=== PATIENT | female | born 1995 | race Caucasian/White ===

== ENCOUNTER 2017-04-21 21:55 | Emergency (ER) | payer BC ==
[~2017-04-21] VITALS: Ht 160 cm; Wt 57.7 kg
[2017-04-21 22:46] VITALS: TEMP 36.7; Ht 160 cm; Wt 57.7 kg
[2017-04-21] MEDS ORDERED: ONDANSETRON INJ 2 MG/ML 2 ML VIAL IV STA (23:00)
[2017-04-21] MEDS ORDERED: DICYCLOMINE HCL 10 MG/ML 2 ML AMP IM ONE (23:00)
[2017-04-21] MEDS ORDERED: OPTIRAY 320 IV PRN (23:15)
[2017-04-21 23:26] VITALS: O2SAT 98
[2017-04-21 23:34] LABS: BASO % 0.1 %; BASO ABS # 0.01 K/uL (0-0.2); EOS % 0.5 %; EOS ABS # 0.08 K/uL (0-0.5); HEMATOCRIT 39.2 % (37-47); HEMOGLOBIN 13.3 g/dL (12.0-16.0); IG# 0.04 K/uL (0.00-0.02); LYMPH % 9.1 %; LYMPH ABS # 1.41 K/uL (1.2-3.4); MEAN CELL VOLUME 83.8 fL (80-100); MEAN CORPUSCULAR HEMOGLOBIN 28.4 pg (25-34); MEAN CORPUSCULAR HGB CONC 33.9 g/dl (32-36); MEAN PLATELET VOLUME 9.5 fL (7.4-10.4); MONO % 9.4 %; MONO ABS # 1.46 K/uL (0.11-0.59); NEUT % 80.6 %; NEUT ABS # 12.52 K/uL (1.4-6.5); PLATELET COUNT 318 K/uL (130-400); RED CELL DISTRIBUTION WIDTH CV 12.3 % (11.5-14.5); RED CELL DISTRIBUTION WIDTH SD 37.3 fL (36.4-46.3); WHITE BLOOD COUNT 15.52 K/uL (4.8-10.8)
[2017-04-21] MEDS ORDERED: BCPILLS PO (23:40)
[2017-04-22 00:23] LABS: ALBUMIN 3.8 gm/dl (3.4-5.0); CALCIUM 8.7 mg/dl (8.5-10.1); CREATININE 0.78 mg/dl (0.60-1.20); POTASSIUM 3.3 mmol/L (3.5-5.1); TOTAL PROTEIN 7.4 gm/dl (6.4-8.2)
[2017-04-22] MEDS ORDERED: SODIUM CHLORIDE 0.9% 1000ML 1,000 ML IV STA (01:01)
[2017-04-22] MEDS ORDERED: CEFTRIAXONE SOD INJ 1 GM ADDVIAL IV STA (02:46)
[2017-04-22] MEDS ORDERED: POTASSIUM CHLORIDE 10 MEQ TABCR PO STA (02:46)
[2017-04-22] MEDS ORDERED: CEFD300C2 PO (03:00)
[2017-04-22] MEDS ORDERED: ONDANSETRON HOME PACK 4MG OD TAB PO ONE (03:00)
[2017-04-22 03:41] VITALS: BP 123/72; PULSE 68; O2SAT 98
--- NOTE | 2017-04-22 05:34 | EMERGENCY ROOM VISIT NOTE ---
History First contact with patient: 22:50 Chief Complaint: ABDOMINAL PAIN Stated Complaint: SEVERE ABDOMINAL PAIN, WORSE ON RT SIDE Nursing Triage Summary: patient c/o RLQ pain beginning earlier today that has worsened throughtout the day along with nausea. History of Present Illness The patient is a 21 year old female who presents to the Emergency Room with complaints of right lower quadrant pain for the past day steadily getting worse described as aching or range at severity 6 out of 10. Nothing makes it better or worse. It Does not radiate. Patient denies chest pain, dyspnea, vomiting, diarrhea, back pain, urinary symptoms, vaginal itching or discharge. Review of Systems See HPI for pertinent positives & negatives. A total of 10 systems reviewed and were otherwise negative. Past Medical/Surgical History None Social History Smoking Status: Never Smoker Smokeless Tobacco Use: No Drug Use: none Occupation Status: [employer] student Current/Historical Medications Scheduled Control Pills ( Control Pills), 1 TAB PO DAILY Cefdinir (Omnicef), 300 MG PO Q12H Physical Exam Vital Signs Date Time Temp Pulse Resp B/P (MAP) Pulse Ox O2 Delivery O2 Flow Rate FiO2 04/22/17 03:41 68 17 123/72 98 04/22/17 01:07 77 20 127/75 98 Room Air 04/21/17 23:26 98 Room Air 04/21/17 23:26 88 20 125/79 98 Room Air 04/21/17 22:46 36.7 115 20 137/98 98 Room Air Physical Exam VITALS: Vitals are noted on the nurse's note and reviewed by myself. Vital signs stable. GENERAL: Pleasant female, in no acute distress, nondiaphoretic, well-developed well-nourished. SKIN: The skin was without rashes, erythema, edema, or bruising. There is no tenting of the skin. Capillary reflex less than 2 seconds. HEAD: Normocephalic atraumatic. EARS: External auditory canals clear, tympanic membranes pearly sarah without erythema or effusion bilaterally. EYES: Pupils equal round and reactive to light and accommodation. Conjunctivae without injection, sclerae without icterus. Extraocular movements intact. NOSE: Patent, turbinates without inflammation or discharge. MOUTH: Mucous membranes moist. Pharynx without erythema or exudate. Uvula midline. Airway patent. Tongue does not deviate. NECK: Supple without nuchal rigidity. No lymphadenopathy. No thyromegaly. Cervical spine is nontender. No JVD. HEART: Regular rate and rhythm without murmurs gallops or rubs. LUNGS: Clear to auscultation bilaterally without wheezes, rales or rhonchi. No dullness to percussion. No retractions or accessory muscle use. ABDOMEN: Positive bowel sounds x 4. Normal tympanic percussion. Soft, tenderness to palpation right lower quadrant, no CVA tenderness, without masses or organomegaly. Gallardo sign negative. No guarding or rebound tenderness. MUSCULOSKELETAL: No muscle atrophy, erythema, or edema noted. NEURO: Patient was alert and oriented to person place and time. Normal sensation to light and sharp touch. No focal neurological deficits. Medical Decision & Procedures Laboratory Results 04/21/17 23:20 Red Blood Count 4.68, Mean Corpuscular Volume 83.8, Mean Corpuscular Hemoglobin 28.4, Mean Corpuscular Hemoglobin Concent 33.9, Mean Platelet Volume 9.5, Neutrophils (%) (Auto) 80.6, Lymphocytes (%) (Auto) 9.1, Monocytes (%) (Auto) 9.4, Eosinophils (%) (Auto) 0.5, Basophils (%) (Auto) 0.1, Neutrophils # (Auto) 12.52, Lymphocytes # (Auto) 1.41, Monocytes # (Auto) 1.46, Eosinophils # (Auto) 0.08, Basophils # (Auto) 0.01 04/21/17 23:20 Test 04/21/17 23:20 04/21/17 23:30 White Blood Count 15.52 K/uL (4.8-10.8) Red Blood Count 4.68 M/uL (4.2-5.4) Hemoglobin 13.3 g/dL (12.0-16.0) Hematocrit 39.2 % (37-47) Mean Corpuscular Volume 83.8 fL (80-100) Mean Corpuscular Hemoglobin 28.4 pg (25-34) Mean Corpuscular Hemoglobin Concent 33.9 g/dl (32-36) Platelet Count 318 K/uL (130-400) Mean Platelet Volume 9.5 fL (7.4-10.4) Neutrophils (%) (Auto) 80.6 % Lymphocytes (%) (Auto) 9.1 % Monocytes (%) (Auto) 9.4 % Eosinophils (%) (Auto) 0.5 % Basophils (%) (Auto) 0.1 % Neutrophils # (Auto) 12.52 K/uL (1.4-6.5) Lymphocytes # (Auto) 1.41 K/uL (1.2-3.4) Monocytes # (Auto) 1.46 K/uL (0.11-0.59) Eosinophils # (Auto) 0.08 K/uL (0-0.5) Basophils # (Auto) 0.01 K/uL (0-0.2) RDW Standard Deviation 37.3 fL (36.4-46.3) RDW Coefficient of Variation 12.3 % (11.5-14.5) Immature Granulocyte % (Auto) 0.3 % Immature Granulocyte # (Auto) 0.04 K/uL (0.00-0.02) Anion Gap 6.0 mmol/L (3-11) Est Creatinine Clear Calc Drug Dose 94.3 ml/min Estimated GFR () 126.0 Estimated GFR (Non- 108.7 BUN/Creatinine Ratio 11.3 (10-20) Calcium Level 8.7 mg/dl (8.5-10.1) Total Bilirubin 0.9 mg/dl (0.2-1) Direct Bilirubin mg/dl (0-0.2) Aspartate Amino Transf (AST/SGOT) 18 U/L (15-37) Alanine Aminotransferase (ALT/SGPT) 22 U/L (12-78) Alkaline Phosphatase 51 U/L (45-117) Total Protein 7.4 gm/dl (6.4-8.2) Albumin 3.8 gm/dl (3.4-5.0) Lipase 109 U/L (73-393) Human Chorionic Gonadotropin, Qual NEG (NEG) Urine Color DK YELLOW Urine Appearance CLEAR (CLEAR) Urine pH 5.5 (4.5-7.5) Urine Specific [place] 1.025 (1.000-1.030) Urine Protein NEG (NEG) Urine Glucose (UA) NEG (NEG) Urine Ketones 2+ (NEG) Urine Occult Blood NEG (NEG) Urine Nitrite NEG (NEG) Urine Bilirubin NEG (NEG) Urine Urobilinogen NEG (NEG) Urine Leukocyte Esterase MODERATE (NEG) Urine WBC (Auto) 10-30 /hpf (0-5) Urine RBC (Auto) 0-4 /hpf (0-4) Urine Hyaline Casts (Auto) 5-10 /lpf (0-5) Urine Epithelial Cells (Auto) >30 /lpf (0-5) Urine Bacteria (Auto) 1+ (NEG) Medications Administered Medications (Trade) Dose Ordered Sig/Samm Route Start Time Stop Time Status Last Admin Dose Admin Dicyclomine HCl (Bentyl Inj) 20 mg NOW ONCE IM 04/21/17 23:00 04/21/17 23:05 DC 04/21/17 23:21 20 MG Ondansetron HCl (Zofran Inj) 4 mg NOW STAT IV 04/21/17 23:00 04/21/17 23:05 DC 04/21/17 23:21 4 MG Sodium Chloride 1,000 ml @ 999 mls/hr Q1H1M STAT IV 04/22/17 01:01 04/22/17 02:01 DC 04/22/17 01:31 999 MLS/HR Ceftriaxone Sodium (Rocephin Inj) 1 gm NOW STAT IV 04/22/17 02:46 04/22/17 02:47 DC 04/22/17 03:02 1 GM Potassium Chloride (Klor-Con M10) 20 meq NOW STAT PO 04/22/17 02:46 04/22/17 02:47 DC 04/22/17 03:02 20 MEQ Ondansetron HCl (ZOFRAN ODT 4MG Home Pack) 1 homepack UD ONCE PO 04/22/17 03:00 04/22/17 03:01 DC 04/22/17 03:00 1 HOMEPACK ED Course Prior records/ancillary studies reviewed. Triage Nursing notes reviewed. Additional history obtained from friends. The patient's history was concerning for abdominal pain. Differential diagnosis: Etiologies such as appendicitis, diverticulitis, PUD, biliary pathology, UTI, pancreatitis, obstruction, mesenteric ischemia, aortic pathology, infections, inflammatory bowel disease, renal colic, as well as others were entertained. Physical examination findings: As above. ER treatment provided: Rocephin On reassessment the patient felt better. Diagnostics interpreted by me: The labs revealed leukocytosis, urine concerning for infection and sent for culture. Negative hCG Imaging studies: CT negative for appendicitis per radiology Exam and history seem consistent with UTI with possible early pyelonephritis. Patient had no CVA tenderness. She is exquisitely tender in the right lower quadrant. She started antibiotics for the UTI and a culture was sent. She is advised to drink plenty fluids flush her bladder and to take medicines as directed. She is advised follow-up health services in a few days or here in the ER sooner for fevers, back pain, vomiting, worsening signs or symptoms or as needed. Patient is afebrile and nontoxic. She was tolerating fluids. By the evaluation outlined above emergent etiologies such as appendicitis, diverticulitis, PUD, biliary pathology, pancreatitis, obstruction, mesenteric ischemia, aortic pathology, inflammatory bowel disease, renal colic, as well as others were deemed relatively unlikely. The pt informed about the findings as listed above. All questions were answered and pleased with the treatment. Return instructions were outlined and the patient was discharged in stable condition. Outpatient prescription management: Omnicef Case reviewed by attending Referral: The patient was referred back to their primary care physician for follow-up in 2 to 3 days for a recheck of the current condition. The chart was completed utilizing [employer] Speech voice recognition software. Grammatical errors, random word insertions, pronoun errors, and incomplete sentences are an occassional consequence of this system due to software limitations, ambient noise, and hardware issues. Any formal questions or concerns about the content, text, or information contained within the body of this dictation should be directly addressed to the physician assistant winemaker for clarification. Medical Decision As above Medication Reconcilliation Current Medication List: was personally reviewed by nd Blood Pressure Screening Patient's blood pressure: Normal blood pressure Impression Primary Impression: Right lower quadrant abdominal pain Additional Impression: UTI (urinary tract infection) Departure Information Dispostion Home / Self-Care Condition GOOD Prescriptions Cefdinir (OMNICEF) 300 Mg Cap 300 MG PO Q12H for 7 Days, #14 CAP Prov: Chiquis Foster PA-C 04/22/17 Forms HOME CARE DOCUMENTATION FORM, School Instructions, Return To School: 1 day IMPORTANT VISIT INFORMATION Patient Instructions UTI, Abdominal Pain - [facility] Additional Instructions Omnicef 300 mg: Take one pill twice daily for 7 days for your urine infection. All antibiotics can cause diarrhea. If this occurs and you feel worse or it does not resolve in 1-2 days follow up with your doctor or return to the Emergency Department as this could be signs of serious underlying problems. Any medication can cause an allergic reaction, stop the pills immediately and return to the ER for rash, hives, breathing difficulties, or swelling. Zofran 4 mg: Take one every six hours as needed for nausea. Avoid alcohol, operating machinery or dangerous equipment, working on ladders or roofs, DRIVING , or situations where being under the influence may be dangerous. Ibuprofen(Motrin, Advil) may be used for fever or pain. Use 600mg every six hours as needed. Take with food. Avoid using more than 2400mg in a 24 hour period. Do not use 2400mg per day for more than three consecutive days without physician direction. Prolonged inappropriate use can lead to stomach upset or ulcers. (AND/OR) Acetaminophen(Tylenol) may be used for fever or pain. Use 1000mg every six hours as needed. Avoid using more than 3000mg in a 24 hour period. Rest and drink plenty of fluids as tolerated. Slow sips of water or sports drinks are recommended instead of large amounts all at once. Continue current medications. Once your stomach is settled start with a clear liquid diet (jello, soup broth, etc.) and then advance as tolerated. You should avoid full, heavy meals for about 24 hrs from the time your symptoms resolved. Return to the ER immediately for worsening or persistent abdominal/back pain, vomiting, fevers, worsening of your condition, or as needed. Follow up with your primary physician/[facility] within 2-3 days for a recheck of the current condition. School Instructions Return To School: 1 day Problem Qualifiers
--- NOTE | 2017-04-22 06:44 | DIAGNOSTIC IMAGING REPORT ---
CT ABD/PELVIS IV AND ORAL CONT CLINICAL HISTORY: Right lower quadrant abdominal pain COMPARISON STUDY: None. TECHNIQUE: Following the IV administration of 118 mL of Optiray-320, CT scan of the abdomen and pelvis was performed from the lung bases to the proximal femurs. Images are reviewed in the axial, sagittal, and coronal planes. IV contrast was administered without complication. A dose lowering technique was utilized adhering to the principles of ALARA. CT DOSE: 290.26 mGy.cm FINDINGS: Lower chest: The heart is normal in size and configuration, without pericardial effusion. The lung bases and pleural spaces are clear. Liver: The contrast-enhanced liver is normal in size, contour, and attenuation. There is no intrahepatic biliary ductal dilatation. The hepatic veins and portal veins are patent. Gallbladder: Unremarkable. Spleen: Normal in size and attenuation. Pancreas: Unremarkable. Adrenal glands: Unremarkable. Kidneys: There is symmetric renal cortical enhancement. The kidneys are normal in size without hydronephrosis. Bowel: There are no transition zones indicate bowel obstruction. There is no acute diverticulitis. The appendix is fluid-filled and does not fill with contrast. The appendix is minimally dilated measuring 7.5 mm in maximal diameter. No significant periappendiceal inflammatory changes are visualized. An early acute appendicitis cannot be excluded and close clinical follow-up is recommended. Repeat imaging or surgical consultation should be considered if symptoms persist. Peritoneum: There is no intraperitoneal free air or abdominal ascites. Vasculature: The abdominal aorta is normal in course and caliber. Adenopathy: None. Pelvic viscera: The bladder, and pelvic viscera are unremarkable. Skeletal structures: No destructive osseous lesions are seen. IMPRESSION: 1. Mildly dilated fluid-filled appendix which does not fill with contrast. There are however no periappendiceal inflammatory changes visualized. It is therefore unclear whether this represents an early acute appendicitis or normal variation. Close clinical follow-up is recommended. Repeat imaging or surgical consultation should be considered if symptoms persist. This report will be called to the ER, as the pulmonary report indicated a normal appendix. Electronically signed by: Josue Head M.D. 04/22/2017 6:43 AM Dictated Date/Time: 04/22/2017 6:36 AM
[2017-04-22] MEDS ORDERED: ONDANSETRON INJ 2 MG/ML 2 ML VIAL ONE (11:01)
[2017-04-22] MEDS ORDERED: KETOROLAC TROMETHAMINE 30 MG/ML VIAL ONE (11:01)
[2017-04-22] MEDS ORDERED: DEXAMETHASONE SOD INJ 4 MG/ML VIAL ONE (11:01)
[2017-04-22] MEDS ORDERED: PROPOFOL IV EMULSION 10 MG/ML 20 ML VIAL IV ONE (11:01)
[2017-04-22] MEDS ORDERED: NEOSTIGMINE METHYLSULFATE 5 MG/5 ML SYR ONE (11:01)
[2017-04-22] MEDS ORDERED: LIDOCAINE HCL 2% 2 ML VIAL (20MG/ML) ONE (11:01)
[2017-04-22] MEDS ORDERED: GLYCOPYRROLATE INJ 0.2 MG/ML VIAL ONE (11:01)
[2017-04-22] MEDS ORDERED: FENTANYL CITRATE INJ 50 MCG/1 ML 2 ML VIAL ONE ×2 (11:02→12:29)
[2017-04-22] MEDS ORDERED: MIDAZOLAM HCL 1 MG/ML 2ML VIAL ONE (11:02)
[2017-04-22] MEDS ORDERED: OXYC-57 PO (14:45)
== END 2017-04-22 03:42 | disposition home or self-care (01) ==
LOC: C.EDB 21:57 → C.EDC 04-22 03:42
DX: R10.31 Right lower quadrant pain (principal); N39.0 Urinary tract infection, site not specified; Z79.3 Long term (current) use of hormonal contraceptives

== ENCOUNTER 2017-04-22 07:37 | Observation (INO) | payer BC ==
[~2017-04-22] VITALS: Ht 160 cm; Wt 58.0 kg
[~2017-04-22 07:37] MED LIST: BCPILLS PO; CEFD300C2 PO
[2017-04-22] MEDS ORDERED: CEFOXITIN SOD 2 GM VIAL IV STA (07:56)
--- NOTE | 2017-04-22 08:01 | EMERGENCY ROOM VISIT NOTE ---
History Report prepared by Kalyan: Kal Pradhan Under the Supervision of: Dr. Wellington Arguelles M.D. First contact with patient: 07:40 Chief Complaint: ABDOMINAL PAIN Stated Complaint: TOLD TO RETURN, HAD CT, ABD PAIN RIGHT SIDE Nursing Triage Summary: pt was seen here last night and sent home then was called back bc her CT scan showed possible appendicitis pt c/o right sided abd pain History of Present Illness The patient is a 21 year old female who presents to the Emergency Room with complaints of right sided abdominal pain that onset yesterday at 1300, 19 hours prior to arrival. The patient presented to the Emergency Department last night for the same symptoms. The patient received a CT Scan of her abdomen which was read by [facility] last night as normal. This morning, the CT Scan was over-read as an acute appendicitis. The patient is still currently experiencing her pain, which she notes has been constant since yesterday at 1700. 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 A total of 10 systems reviewed and were otherwise negative. Past Medical & Surgical Medical Problems: (1) Acute appendicitis (2) RLQ abdominal pain No pertinent past medical histories discussed. Family History No pertinent family history secondary to case. Social History Smoking Status: Never Smoker Drug Use: none Housing Status: lives with roommate Occupation Status: [employer] student Current/Historical Medications Scheduled Control Pills ( Control Pills), 1 TAB PO DAILY Cefdinir (Omnicef), 300 MG PO Q12H Scheduled PRN Oxycodone/Acetaminophen 5MG/325MG (Percocet 5MG/325MG), 1 TABLET PO Q4H PRN for Pain Allergies Coded Allergies: Hydromorphone (Verified Allergy, Severe, Hives, edema, 04/22/17) Physical Exam Vital Signs Date Time Temp Pulse Resp B/P (MAP) Pulse Ox O2 Delivery O2 Flow Rate FiO2 04/22/17 10:38 88 18 135/97 97 04/22/17 09:45 87 18 128/90 97 Room Air 04/22/17 07:46 37.0 91 16 128/84 96 Physical Exam GENERAL: Patient is a healthy-appearing well-nourished female HEAD: Normocephalic atraumatic EYES: Ocular movements intact pupils equal and react to light OROPHARYNX mucous membranes are moist no exudates present no erythema or edema present NECK: Supple no nuchal rigidity CHEST: Good equal expansion LUNGS: Clear and equal to auscultation CARDIAC: Normal S1 and S2 ABDOMEN: Soft, with tenderness to the right lower quadrant, no guarding BACK: No CVA tenderness EXTREMITIES: No pain upon palpation normal muscle strength in all groups no clubbing cyanosis or edema NEURO: Patient is following commands and answering questions appropriately. Alert and oriented x3 Cranial Nerves 2-12 grossly intact Medical Decision & Procedures Laboratory Results 04/22/17 08:02 Test 04/22/17 08:02 04/22/17 09:00 Anion Gap 10.0 mmol/L (3-11) Est Creatinine Clear Calc Drug Dose 88.7 ml/min Estimated GFR () 116.8 Estimated GFR (Non- 100.8 BUN/Creatinine Ratio 7.5 (10-20) Calcium Level 8.8 mg/dl (8.5-10.1) Total Bilirubin 0.9 mg/dl (0.2-1) Direct Bilirubin 0.2 mg/dl (0-0.2) Aspartate Amino Transf (AST/SGOT) 28 U/L (15-37) Alanine Aminotransferase (ALT/SGPT) 22 U/L (12-78) Alkaline Phosphatase 57 U/L (45-117) Total Protein 8.0 gm/dl (6.4-8.2) Albumin 4.1 gm/dl (3.4-5.0) Lipase 99 U/L (73-393) Urine Color YELLOW Urine Appearance CLEAR (CLEAR) Urine pH 6.0 (4.5-7.5) Urine Specific [place] 1.042 (1.000-1.030) Urine Protein NEG (NEG) Urine Glucose (UA) NEG (NEG) Urine Ketones 4+ (NEG) Urine Occult Blood NEG (NEG) Urine Nitrite NEG (NEG) Urine Bilirubin NEG (NEG) Urine Urobilinogen NEG (NEG) Urine Leukocyte Esterase TRACE (NEG) Urine WBC (Auto) 1-5 /hpf (0-5) Urine RBC (Auto) 0-4 /hpf (0-4) Urine Hyaline Casts (Auto) 1-5 /lpf (0-5) Urine Epithelial Cells (Auto) >30 /lpf (0-5) Urine Bacteria (Auto) NEG (NEG) Labs reviewed by ED physician. Medications Administered Medications (Trade) Dose Ordered Sig/Samm Route Start Time Stop Time Status Last Admin Dose Admin Ondansetron HCl (Zofran Inj) 4 mg Q4H PRN IV 04/22/17 09:30 04/23/17 13:31 DC 04/22/17 14:46 4 MG Oxycodone/ Acetaminophen (Percocet 5-325mg Tab) 1 tab Q4H PRN PO 04/22/17 09:30 04/23/17 13:31 DC 04/23/17 10:51 1 TAB Bupivacaine HCl (Marcaine 0.5% MPF Inj) 30 ml STK-MED ONCE .ROUTE 04/22/17 11:42 04/22/17 11:43 DC 04/22/17 11:42 17.5 ML Lidocaine HCl (Xylocaine 1% Inj (Local)) 20 ml STK-MED ONCE .ROUTE 04/22/17 11:42 04/22/17 11:43 DC 04/22/17 11:42 17.5 ML Bacitracin (Bacitracin Oint) 45 appln STK-MED ONCE .ROUTE 04/22/17 11:43 04/22/17 11:44 DC 04/22/17 11:43 45 APPLN ED Course 0752: Past medical records reviewed. The patient was evaluated in room A9. A complete history and physical examination was performed. 0845: Ordered Cefoxitin Sodium 60 mL @ 120 mL/hr IV. 0803: I discussed the case with Denise Byrne PA-C. She will take the patient to the OR. Medical Decision Differential diagnosis: Etiologies such as appendicitis, diverticulitis, PUD, biliary pathology, UTI, pancreatitis, obstruction, mesenteric ischemia, aortic pathology, infections, inflammatory bowel disease, renal colic, as well as others were entertained. This is a 21-year-old female who presents emergency department complaining of right lower quadrant abdominal pain. The patient was contacted at home due to a positive CT the abdomen and pelvis. An IV was established, patient given Zofran, Mefoxin. I did discuss the case with the surgeon on-call who agreed to see the patient. Patient was in agreement with the treatment plan. Consults Time Called: 0750 Consulting Physician: Denise Byrne PA-C Returned Call: [phone] I discussed the case with Denise Byrne PA-C. She will take the patient to the OR. Impression Primary Impression: Acute appendicitis Scribe Attestation The scribe's documentation has been prepared under my direction and personally reviewed by me in its entirety. I confirm that the note above accurately reflects all work, treatment, procedures, and medical decision making performed by me. Departure Information Dispostion Being Evaluated By Surgeon Prescriptions Oxycodone/Acetaminophen 5MG/325MG (PERCOCET 5MG/325MG) Tab 1 TABLET PO Q4H Y for Pain, #18 TAB Prov: Denise Pierce .CHIP 04/22/17 Referrals [facility] (PCP) Patient Instructions My [facility] Problem Qualifiers Primary Impression: Acute appendicitis Acute appendicitis type: unspecified acute appendicitis type Qualified Codes : K35.80 - Unspecified acute appendicitis
[2017-04-22 08:28] LABS: BASO % 0.1 %; BASO ABS # 0.01 K/uL (0-0.2); EOS % 1.1 %; EOS ABS # 0.11 K/uL (0-0.5); HEMATOCRIT 40.2 % (37-47); HEMOGLOBIN 13.7 g/dL (12.0-16.0); IG# 0.02 K/uL (0.00-0.02); LYMPH % 14.1 %; LYMPH ABS # 1.46 K/uL (1.2-3.4); MEAN CELL VOLUME 84.1 fL (80-100); MEAN CORPUSCULAR HEMOGLOBIN 28.7 pg (25-34); MEAN CORPUSCULAR HGB CONC 34.1 g/dl (32-36); MEAN PLATELET VOLUME 9.4 fL (7.4-10.4); MONO % 9.1 %; MONO ABS # 0.94 K/uL (0.11-0.59); NEUT % 75.4 %; PLATELET COUNT 337 K/uL (130-400); RED CELL DISTRIBUTION WIDTH CV 12.4 % (11.5-14.5); RED CELL DISTRIBUTION WIDTH SD 37.8 fL (36.4-46.3); WHITE BLOOD COUNT 10.34 K/uL (4.8-10.8)
[2017-04-22 08:45] LABS: ALBUMIN 4.1 gm/dl (3.4-5.0); CALCIUM 8.8 mg/dl (8.5-10.1); CREATININE 0.83 mg/dl (0.60-1.20); POTASSIUM 3.5 mmol/L (3.5-5.1)
[2017-04-22] MEDS ORDERED: CEFOXITIN IV 2,000 MG in DEXTROSE 5% 50ML 50 ML IV ONE (08:45)
--- NOTE | 2017-04-22 08:47 | History and Physical ---
History & Physical Date & Time of Service: Apr 22, 2017 at 08:31 Chief Complaint: Told To Return, Had Ct, Abd Pain Right Side Primary Care Physician: Services,[facility] History of Present Illness Source: patient Maureen is a pleasant 21 year-old [employer] who originally presented to emergency room last evening with complaint of abdominal pain that began around 1 pm located in the umbilical region and then slowly increased in intensity to the right lower abdomen. States she had associated chills and nausea but no vomiting. States her appetite has been low and has not had anything to eat since yesterday at lunch time. States she has had some diarrhea but no blood in stools. Has never had this type of pain before. Denies of any fever, night sweats, chest pain, shortness of breath, difficulty breathing, blood in stools, blood in urine, difficulty urinating or dysuria. CT scan with po and IV contrast was read last evening as normal and patient was sent home from the emergency department however the CT scan was re-read by our radiologist this morning and it is being read as possible early acute appendicitis. Appendix not filling with contrast and slightly dilated at 7.5 mm. No periappendiceal inflammation. Her wbc last night in the emergency department was 15K, this am labs still pending. Maureen states that her pain is slightly better compared to yesterday but she states pain is 5/10 at rest and worse with any type of movement, cough, laughing, or laying flat. She is more comfortable sitting up. Past Medical/Surgical History No significant past medical history Surgical History: Cosmetic repair of ears as a child Social History Smoking Status: Never Smoker Drug Use: none Occupational Status: [email or web address] student Allergies Coded Allergies: No Known Allergies (Unverified , 04/22/17) Home Medications Scheduled Control Pills ( Control Pills), 1 TAB PO DAILY Cefdinir (Omnicef), 300 MG PO Q12H Review of Systems Constitutional: + chills, No fever, No sweats Respiratory: No cough, No wheezing, No shortness of breath, No dyspnea on exertion, No dyspnea at rest Cardiovascular: No chest pain Abdomen: + pain (as per HPI), + nausea, + diarrhea, No vomiting Genitourinary - Female: No dysuria, No urinary frequency, No urinary urgency, No urinary retention, No hematuria Hematologic / Lymphatic: No abnormal bleeding/bruising Integumentary: No rash Physical Exam Vital Signs Date Time Temp Pulse Resp B/P (MAP) Pulse Ox O2 Delivery O2 Flow Rate FiO2 04/22/17 07:46 37.0 91 16 128/84 96 General Appearance: WD/WN, no apparent distress Head: normocephalic, atraumatic Eyes: sclerae normal ENT: hearing grossly normal Neck: trachea midline Respiratory/Chest: lungs clear, normal breath sounds, no respiratory distress, no accessory muscle use Cardiovascular: no murmur, + tachycardia Abdomen/GI: normal bowel sounds, soft, no organomegaly, no pulsatile mass, + tenderness (RLQ on mild palpation, positive McBurney's Point with voluntary guarding, + rebound) Back: normal inspection Extremities/Musculoskelatal: no pedal edema Neurologic/Psych: alert, normal mood/affect, oriented x 3 Skin: normal color, warm/dry, no rash Diagnostics Laboratory Results Results Past 24 Hours Test 04/22/17 08:02 Range/Units White Blood Count 10.34 4.8-10.8 K/uL Red Blood Count 4.78 4.2-5.4 M/uL Hemoglobin 13.7 12.0-16.0 g/dL Hematocrit 40.2 37-47 % Mean Corpuscular Volume 84.1 80-100 fL Mean Corpuscular Hemoglobin 28.7 25-34 pg Mean Corpuscular Hemoglobin Concent 34.1 32-36 g/dl Platelet Count 337 130-400 K/uL Mean Platelet Volume 9.4 7.4-10.4 fL Neutrophils (%) (Auto) 75.4 % Lymphocytes (%) (Auto) 14.1 % Monocytes (%) (Auto) 9.1 % Eosinophils (%) (Auto) 1.1 % Basophils (%) (Auto) 0.1 % Neutrophils # (Auto) 7.80 1.4-6.5 K/uL Lymphocytes # (Auto) 1.46 1.2-3.4 K/uL Monocytes # (Auto) 0.94 0.11-0.59 K/uL Eosinophils # (Auto) 0.11 0-0.5 K/uL Basophils # (Auto) 0.01 0-0.2 K/uL RDW Standard Deviation 37.8 36.4-46.3 fL RDW Coefficient of Variation 12.4 11.5-14.5 % Immature Granulocyte % (Auto) 0.2 % Immature Granulocyte # (Auto) 0.02 0.00-0.02 K/uL Diagnostic Radiology Ct scan of abdomen and pelvis with PO and IV contrast Original read last night was normal, patient sent home IMPRESSION: 1. Mildly dilated fluid-filled appendix which does not fill with contrast. There are however no periappendiceal inflammatory changes visualized. It is therefore unclear whether this represents an early acute appendicitis or normal variation. Close clinical follow-up is recommended. Repeat imaging or surgical consultation should be considered if symptoms persist. This report will be called to the ER, as the pulmonary report indicated a normal appendix. 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 scan last evening was read unremarkable and patient sent home from ER. CT scan re- read this morning, concerning for early acute appendicitis. Labs last night showed leukocytosis of 15K. Repeat WBC this am was within normal limits. Abdominal exam shows soft abdomen, RLQ tenderness on palpation with positive McBurney's point, voluntary guarding, and rebound. Normal bowel sounds. Patient's Urinalysis last evening showed positive bacteria, elevated WBCs and positive leukocyte esterase with negative Nitrite, urine culture sent. Patient is asymptomatic however without any dysuria, urinary frequency, urgency, or blood in urine. CT scan showed no evidence of hydronephrosis or pyelonephritis Plan: Plan for laparoscopic appendectomy possible open. Patient informed of procedure and risks, informed consent obtained. Will continue IV abx, NPO, IV Fluids and pain management up until she is taken to operating room. She will be admitted to med/surg floor for observation IV Cefoxitin will cover for possible uncomplicated UTI Dr. Jack has seen and examined patient, agrees with above.
[2017-04-22] MEDS ORDERED: SODIUM CHLORIDE 0.9% 1000ML 1,000 ML IV SCH (09:29)
[2017-04-22] MEDS ORDERED: MoRPHine SULFATE 4 MG/ML 1 ML CARP\\VIAL IV PRN (09:30)
[2017-04-22] MEDS ORDERED: ONDANSETRON INJ 2 MG/ML 2 ML VIAL IV PRN ×3 (09:30→13:00)
[2017-04-22] MEDS ORDERED: MoRPHine SULFATE 2 MG/ML CARP IV PRN ×2 (09:30)
[2017-04-22] MEDS ORDERED: OXYCODONE/ACETAMINOPHEN 5-325 TAB PO PRN ×3 (09:30→13:00)
[2017-04-22] MEDS ORDERED: PHENYLEPHRINE 100MCG/ML 5ML SYR IV PRN (11:00)
[2017-04-22] MEDS ORDERED: EpHEDrine SULFATE INJ 50 MG/ML AMP IV PRN (11:00)
[2017-04-22] MEDS ORDERED: ATROPINE SULFATE 0.1 MG/ML 5ML SYR IV PRN (11:00)
[2017-04-22] MEDS ORDERED: HYDROmorphone INJ 2 MG/ML SYR/VIAL IV PRN (11:00)
--- NOTE | 2017-04-22 11:18 | History & Physical Bridge Note ---
H&P Re-Evaluation Bridge Note: I have examined the patient, reviewed the History & Physical and in the interval since the performance of the History & Physical I have noted the following changes of clinical significance: No changes noted
[2017-04-22] MEDS ORDERED: LIDOCAINE HCL 1% 20 ML VIAL ONE (11:42)
[2017-04-22] MEDS ORDERED: BUPIVACAINE 0.5 % 5 MG/1 ML MPF 30ML VIAL ONE (11:42)
[2017-04-22] MEDS ORDERED: BACITRACIN OINT 15 GM TUBE ONE (11:43)
--- NOTE | 2017-04-22 12:50 | [facility] Post Operative Brief Note ---
Immediate Operative Summary Operative Date Apr 22, 2017. Pre-Operative Diagnosis Acute Appendicitis Post-Operative Diagnosis Acute Appendicitis Procedure(s) Performed Laparoscopic Appendectomy Surgeon Dr. Jack Marble Mason Surgeon(s) Denise Pierce PA-C Estimated Blood Loss 5 cc Findings acute appendicitis Fluids (cc crystalloids) 1000ml Specimens A:Appendix Drains none Anesthesia general Complication(s) None Disposition Recovery Room / PACU
[2017-04-22] MEDS ORDERED: ACETAMINOPHEN 325 MG TAB PO PRN (13:00)
[2017-04-22] MEDS ORDERED: HYDROmorphone INJ 1 MG/ML SYR IV PRN (13:00)
--- NOTE | 2017-04-22 13:36 | OPERATIVE REPORT ---
DATE OF OPERATION: 04/22/2017 PREOPERATIVE DIAGNOSIS: Acute appendicitis. POSTOPERATIVE DIAGNOSIS: Same. PROCEDURE: Laparoscopic appendectomy. SURGEON: Dr. Cornelius Jack. CONTENT MANAGER: Denise Pierce PA-C. ANESTHESIA: General. ESTIMATED BLOOD LOSS: About 5 mL. FINDINGS: Acute appendicitis. COMPLICATIONS: None. INDICATIONS FOR THE PROCEDURE: This is a 47-year-old female who presented to the ED with 1 day history of right lower quadrant pain and the patient had CT scan diagnosis of acute appendicitis. The patient required total laparoscopy, appendectomy, possible open. I did talk to the patient about the benefit and risk, alternate procedure. I indicated the risks may include but not limited such as bleeding, infection, injury to bowel, abscess. The patient understands and she signed informed consent and I answered all questions. DETAILS OF PROCEDURE: We brought the patient to the OR, put the patient in the supine procedure. The patient received SCD on bilateral legs to prevent DVT. Also, the patient received SCD on bilateral legs to prevent DVT. Also, patient received 2 gram cefoxitin IV for prophylactic antibiotic. The patient received general anesthesia without difficulty. The abdomen was prepped and draped in routine sterile fashion. After a timeout, I injected local anesthesia by using 1% lidocaine mixed with 0.5% Marcaine just above umbilical, made a small incision just above umbilical, opened fascia and opened peritoneum under direct vision. I put a Jamir trocar in, connected to CO2 to create pneumoperitoneum. Flow rate is 6 liter per minute. Pressure not more than 14 mmHg. Once we get a nice pneumoperitoneum, we put camera in, looked around the abdomen shows no more findings on the stomach, small bowel, large bowel, liver, and no free fluid on the pelvic area. The appendix showing some inflammation, edema, confirmed acute appendicitis. Then, we put another two 5 mm trocar on the left lower quadrant area. Once all trocars in I put grasper in to hold the appendix, used the harmonic take down appendiceal, rechecked no active bleeding and then I used Endo-ANTONY staple transection the base of the appendix, rechecked no active bleeding, no leak. Then we pulled out the appendix through the catch bag. Then we reinserted Jamir trocar in, connected to CO2 to create pneumoperitoneum. Again looked around the abdomen, no active bleeding, no leak from bowel, no injury to the bowel. Then we removed all trocar under direct vision. No active bleeding from trocar sites. The pneumoperitoneum was released. Then using #1 Vicryl, closed the umbilical incision, fascial layer [id number] x2, closed subcutaneous layer by using 2-0 Vicryl, closed skin by using 4-0 Vicryl continuous running. Then we closed another two 5 mm trocar site on the skin only by using 4-0 Vicryl. We put the dressing on. The patient tolerated the procedure well. All the instrument, needle and sponge count correct x2 at the end of the case. The specimen sent to pathology. After the procedure, I did talk to the patient and parents about the OR finding and procedure we did, they understand. I attest to the content of the Intraoperative Record and any orders documented therein. Any exceptions are noted below. ASIA
--- NOTE | 2017-04-22 13:57 | Anesthesiology Progress Note ---
Anesthesia Post Op Note Date & Time Apr 22, 2017 at 13:57 Vital Signs Pain Intensity: 0 Vital Signs Past 12 Hours Date Time Temp Pulse Resp B/P (MAP) Pulse Ox O2 Delivery O2 Flow Rate FiO2 04/22/17 13:52 61 15 04/22/17 13:52 61 15 99 04/22/17 13:50 118/78 04/22/17 13:47 61 15 04/22/17 13:47 61 15 100 04/22/17 13:45 121/72 04/22/17 13:42 63 15 04/22/17 13:42 36.7 61 16 129/81 (92) 100 Nasal Cannula 2 04/22/17 13:42 63 15 97 04/22/17 13:41 66 22 04/22/17 13:41 65 22 98 04/22/17 13:40 77 16 129/81 97 04/22/17 13:40 76 16 04/22/17 13:35 62 19 04/22/17 13:35 62 19 122/75 99 04/22/17 13:34 62 19 04/22/17 13:34 62 19 99 04/22/17 13:30 130/82 04/22/17 13:29 64 15 100 04/22/17 13:29 65 15 04/22/17 13:28 66 17 99 04/22/17 13:28 66 17 04/22/17 13:25 117/84 04/22/17 13:23 70 16 99 04/22/17 13:23 70 16 04/22/17 13:20 142/84 04/22/17 13:18 74 16 04/22/17 13:18 72 16 99 04/22/17 13:15 133/88 04/22/17 13:13 136/85 04/22/17 13:13 36.7 89 16 136/85 (105) 100 Oxymask 10 04/22/17 10:38 88 18 135/97 97 04/22/17 09:45 87 18 128/90 97 Room Air 04/22/17 07:46 37.0 91 16 128/84 96 Notes Mental Status: alert / awake / arousable, participated in evaluation Pt Amnestic to Procedure: Yes Nausea / Vomiting: adequately controlled Pain: adequately controlled Airway Patency, RR, SpO2: stable & adequate BP & HR: stable & adequate Hydration State: stable & adequate Anesthetic Complications: no major complications apparent
[2017-04-22 14:35] VITALS: BP 141/93; PULSE 84; TEMP 37; O2SAT 100
--- NOTE | 2017-04-22 14:44 | Discharge Instructions ---
Discharge Instructions Date of Service Apr 22, 2017. Admission Reason for Admission: Told To Return, Had Ct, Abd Pain Right Side Discharge Discharge Diagnosis / Problem: acute appendicitis Discharge Goals Goal(s): Decrease discomfort, Improve function Activity Recommendations Activity Limitations: as noted below No heavy lifting over 20 pounds for 3 weeks No strenuous activity until cleared by surgeon No submerging incisions underwater for 2 weeks (no bathing, swimming, or hot tubs) No driving while taking narcotic pain medication or until you are pain free . Instructions / Follow-Up Instructions / Follow-Up You may shower in 4 days and remove outer dressings and then replace dressings daily. You may sponge bath and wash hair in meantime. Leave steri strips on incisions for 7 days and then remove. They may fall off on their own that is okay. Walking and light activity is encouraged to prevent blood clots from forming in you legs You will be given prescription for narcotic pain medication, take as directed. This medication may make you drowsy, only take for moderate to severe pain. You may take extra strength Tylenol or Ibuprofen as needed for mild pain. Urine Culture is still pending, would get the prescription filled that was given to your from the emergency room physician to fill and finish course of antibiotic as directed. Follow-up in surgical office in 2 weeks, please call office at [phone] to make an appointment. Current Hospital Diet Patient's current hospital diet: Discharge Diet Recommended Diet: Regular Diet Procedures Procedures Performed: Laparoscopic Appendectomy Pending Studies Studies pending at discharge: yes List of pending studies: appendix pathology Medical Emergencies . Who to Call and When: Medical Emergencies: If at any time you feel your situation is an emergency, please call 911 immediately. . Non-Emergent Contact Non-Emergency issues call your: Primary Care Provider, Surgeon Call Non-Emergent contact if: you have a fever, temperature is above 101, your pain is not controlled, your pain is worsening, your pain is unusual for you, wound has increased drainage, wound has increased redness, wound has increased pain . "Provider Documentation" section prepared by Denise Pierce. . VTE Core Measure Inpt VTE Proph given/why not?: SCD's [place] Drug Monitoring Program Search Results: patient reviewed within database, no issues identified
[2017-04-22] MEDS ORDERED: OXYC-57 PO (14:45)
[2017-04-22 14:53] VITALS: BP 154/89; PULSE 86; TEMP 36.8; O2SAT 100
[2017-04-22] MEDS ORDERED: DiphenhydrAMINE HCL 50 MG/ML VIAL ONE (14:57)
[2017-04-22] MEDS ORDERED: NURSING VERBAL MED ORDER ONE (15:00)
[2017-04-22 15:35] VITALS: BP 121/83; PULSE 82; TEMP 36.9; O2SAT 100
[2017-04-22] MEDS ORDERED: DiphenhydrAMINE HCL 50 MG/ML VIAL IV PRN (15:45)
[2017-04-22] MEDS: CIPROFLOXACIN / D5W 400 MG in PREMIXED IN D5W 200 ML IV SCH (15:48)
[2017-04-22] MEDS: D5W AND 1/2NSS + 20MEQ KCL 1,000 ML IV SCH (15:49)
[2017-04-22 16:02] VITALS: Ht 160 cm; Wt 58.0 kg
[2017-04-22] MEDS ORDERED: IV FLUIDS COMPLETED PRN (16:30)
[2017-04-22] MEDS ORDERED: TRAMADOL HCL 50 MG TAB PO PRN (17:30)
[2017-04-22 19:04] VITALS: BP 124/83; PULSE 96; TEMP 37; O2SAT 98
[2017-04-22] MEDS ORDERED: NURSING DECISION MEDICATION ORDER SCH (20:30)
[2017-04-22] MEDS ORDERED: COUGH DROP (SUGAR FREE) LOZ 24 LOZ/1 BOX ONE (20:56)
[2017-04-22] MEDS ORDERED: COUGH DROP (SUGAR FREE) LOZ 24 LOZ/1 BOX PO PRN (21:15)
[2017-04-22 22:52] VITALS: BP 112/74; PULSE 75; TEMP 37.1; O2SAT 93
[2017-04-23] MEDS: CIPROFLOXACIN / D5W 400 MG in PREMIXED IN D5W 200 ML IV SCH (03:00)
[2017-04-23] MEDS: D5W AND 1/2NSS + 20MEQ KCL 1,000 ML IV SCH ×3 (03:00→09:09)
[2017-04-23 03:06] VITALS: BP 110/67; PULSE 65; TEMP 36.9; O2SAT 98
[2017-04-23 06:06] LABS: BASO % 0.1 %; BASO ABS # 0.01 K/uL (0-0.2); HEMATOCRIT 35.2 % (37-47); HEMOGLOBIN 11.8 g/dL (12.0-16.0); IG# 0.02 K/uL (0.00-0.02); LYMPH % 13.1 %; LYMPH ABS # 1.24 K/uL (1.2-3.4); MEAN CELL VOLUME 84.6 fL (80-100); MEAN CORPUSCULAR HEMOGLOBIN 28.4 pg (25-34); MEAN CORPUSCULAR HGB CONC 33.5 g/dl (32-36); MEAN PLATELET VOLUME 9.1 fL (7.4-10.4); MONO % 10.9 %; MONO ABS # 1.03 K/uL (0.11-0.59); NEUT % 75.7 %; NEUT ABS # 7.17 K/uL (1.4-6.5); PLATELET COUNT 284 K/uL (130-400); RED CELL DISTRIBUTION WIDTH CV 12.2 % (11.5-14.5); RED CELL DISTRIBUTION WIDTH SD 37.7 fL (36.4-46.3); WHITE BLOOD COUNT 9.47 K/uL (4.8-10.8)
[2017-04-23 07:32] VITALS: BP 107/71; PULSE 71; TEMP 36.8; O2SAT 98
--- NOTE | 2017-04-23 11:01 | Surgery Progress Note ---
Surgery Progress Note Date of Service Apr 23, 2017. Subjective Post OP Day: 1 + feeling well pt is doing fine, less abdominal pain, no nausea, no vomiting, Objective Vital Signs: Date Time Temp Pulse Resp B/P (MAP) Pulse Ox O2 Delivery O2 Flow Rate FiO2 04/23/17 08:00 Room Air 04/23/17 07:32 36.8 71 15 107/71 (83) 98 Room Air 04/23/17 03:06 36.9 65 14 110/67 (81) 98 Room Air 04/22/17 23:00 Room Air 04/22/17 22:52 37.1 75 14 112/74 (87) 93 Room Air 04/22/17 19:04 37.0 96 18 124/83 (97) 98 Room Air 04/22/17 16:02 Nasal Cannula 2.0 04/22/17 15:40 Nasal Cannula 2.0 04/22/17 15:35 36.9 82 20 121/83 (96) 100 Nasal Cannula 2.0 04/22/17 14:53 36.8 86 24 154/89 (110) 100 Nasal Cannula 2.0 04/22/17 14:35 37.0 84 18 141/93 (109) 100 Nasal Cannula 2.0 04/22/17 14:35 100 Nasal Cannula 04/22/17 14:35 100 Room Air 2.0 04/22/17 14:05 122/70 04/22/17 14:03 66 18 04/22/17 14:03 66 18 99 04/22/17 14:00 116/70 04/22/17 13:58 63 17 04/22/17 13:58 64 17 99 04/22/17 13:55 120/70 04/22/17 13:53 63 14 04/22/17 13:53 63 14 99 04/22/17 13:52 61 15 04/22/17 13:52 61 15 99 04/22/17 13:50 118/78 04/22/17 13:47 61 15 04/22/17 13:47 61 15 100 04/22/17 13:45 121/72 04/22/17 13:42 63 15 04/22/17 13:42 36.7 61 16 129/81 (92) 100 Nasal Cannula 2 04/22/17 13:42 63 15 97 04/22/17 13:41 66 22 04/22/17 13:41 65 22 98 04/22/17 13:40 77 16 129/81 97 04/22/17 13:40 76 16 04/22/17 13:35 62 19 04/22/17 13:35 62 19 122/75 99 04/22/17 13:34 62 19 04/22/17 13:34 62 19 99 04/22/17 13:30 130/82 04/22/17 13:29 64 15 100 04/22/17 13:29 65 15 04/22/17 13:28 66 17 99 04/22/17 13:28 66 17 04/22/17 13:25 117/84 04/22/17 13:23 70 16 99 04/22/17 13:23 70 16 04/22/17 13:20 142/84 04/22/17 13:18 74 16 04/22/17 13:18 72 16 99 04/22/17 13:15 133/88 04/22/17 13:13 136/85 04/22/17 13:13 36.7 89 16 136/85 (105) 100 Oxymask 10 General Appearance: WD/WN, no apparent distress Head: normocephalic Neck: supple, no JVD Respiratory/Chest: chest non-tender, lungs clear Cardiovascular: regular rate, rhythm, no edema, no gallop, no JVD, no murmur Abdomen: normal bowel sounds, non tender, non distended, soft, no organomegaly Incision(s): clean, dry, intact Extremities: normal range of motion, non-tender, normal inspection Laboratory Results: Results Past 24 Hours Test 04/23/17 05:51 Range/Units White Blood Count 9.47 4.8-10.8 K/uL Red Blood Count 4.16 4.2-5.4 M/uL Hemoglobin 11.8 12.0-16.0 g/dL Hematocrit 35.2 37-47 % Mean Corpuscular Volume 84.6 80-100 fL Mean Corpuscular Hemoglobin 28.4 25-34 pg Mean Corpuscular Hemoglobin Concent 33.5 32-36 g/dl Platelet Count 284 130-400 K/uL Mean Platelet Volume 9.1 7.4-10.4 fL Neutrophils (%) (Auto) 75.7 % Lymphocytes (%) (Auto) 13.1 % Monocytes (%) (Auto) 10.9 % Eosinophils (%) (Auto) 0.0 % Basophils (%) (Auto) 0.1 % Neutrophils # (Auto) 7.17 1.4-6.5 K/uL Lymphocytes # (Auto) 1.24 1.2-3.4 K/uL Monocytes # (Auto) 1.03 0.11-0.59 K/uL Eosinophils # (Auto) 0.00 0-0.5 K/uL Basophils # (Auto) 0.01 0-0.2 K/uL RDW Standard Deviation 37.7 36.4-46.3 fL RDW Coefficient of Variation 12.2 11.5-14.5 % Immature Granulocyte % (Auto) 0.2 % Immature Granulocyte # (Auto) 0.02 0.00-0.02 K/uL Assessment & Plan S/P lap appy Pt is doing fine, pt wants to go home today, the post-op care instruction was given, Follow up 1 week,
[2017-04-23 11:11] VITALS: BP 107/71; PULSE 71; TEMP 36.8; O2SAT 98
--- NOTE | 2017-04-23 11:22 | DISCHARGE SUMMARY ---
DATE OF DISCHARGE: 04/23/2017 ADMITTING DIAGNOSIS: Acute appendicitis. DISCHARGE DIAGNOSIS: Same. OPERATION: Laparoscopic appendectomy. SURGEON: Dr. Cornelius Jack. DETAILS OF DISCHARGE SUMMARY: This is a 21-year-old female who presented to the ED with right lower quadrant pain. The patient had CT scan diagnosis of acute appendicitis. We took the patient to the OR yesterday and we did a laparoscopic appendectomy. In the OR confirmed patient had acute appendicitis. The patient tolerated the procedure well. After the procedure, the patient transferred to regular floor. The patient doing fine and overnight and the patient tolerated clear diet. No nausea, no vomiting. No significant abdominal pain. PHYSICAL EXAMINATION: VITAL SIGNS: Temperature is 36.8, heart rate 71, respiratory rate 16, blood pressure is 107/71. O2 saturation 98% on room air. GENERAL: The patient is alert, awake, oriented x3. HEAD, EYES, EARS, NOSE, AND THROAT: With normal limitation. NEUROLOGIC EXAMINATION: Intact. NECK: No JVD. CHEST: Bilateral lung sounds clear. HEART: Normal S1, S2. No murmur. ABDOMEN: Soft, nondistended. No significant tenderness. Bowel sounds positive. All dressings intact. EXTREMITIES: No edema. PLAN: The patient wanted to go home today. I gave the patient the postop care instructions and I will follow up the patient in 1 week. I also talked to the parents about the postop care and instruction, they understand. ASIA
== END 2017-04-23 13:31 | disposition home or self-care (01) ==
LOC: C.EDB 07:39 → C.MSW 12:52 → ENRESERV 14:04
PROVIDERS: ADMIT Surgery; ATTEND Surgery
DX: K35.80 Unspecified acute appendicitis (principal)